=== PATIENT | female | born 1950 | race Caucasian/White ===

== ENCOUNTER 2017-01-12 11:41 | Emergency (ER) | payer OTHER ==
[2017-01-12] MEDS ORDERED: PENICILLIN VK 250 MG TABLET PO STA (12:22)
[2017-01-12] MEDS ORDERED: PENICILLIN VK 250 MG TABLET PO ONE (12:30)
[2017-01-12] MEDS ORDERED: BACITRACIN OINT TOP STA (12:41)
== END 2017-01-12 12:50 | disposition home or self-care (01) ==
DX: S01.511A Laceration without foreign body of lip, initial encounter (principal); S00.81XA Abrasion of other part of head, initial encounter; W01.0XXA Fall on same level from slipping, tripping and stumbling without subsequent striking against object, initial encounter; Y93.02 Activity, running
CPT/HCPCS: 99283; A9270

== ENCOUNTER 2019-06-02 04:53 | Emergency (ER) | payer OTHER ==
--- NOTE | 2019-06-02 05:00 | ED Physician Documentation ---
History of Present Illness - Stated complaint Stated Complaint: STUNG BY BEE ON FINGER - History obtained from History obtained from: Patient - History of Present Illness Timing: How many days ago (2) Pain level now: 0 - Additonal information Additional information: stung by a bee to her right fourth (ring) finger. 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 Patient is left- hand dominant Review of Systems Constitutional: denies: Fever Skin: reports: Bite / sting Musculoskeletal: reports: Extremity pain PD PAST MEDICAL HISTORY - Past Medical History Past Medical History: No - Past Surgical History Past Surgical History: Yes /ENFORCEMENT MANAGER: Oophrectomy HEENT: Other - Present Medications Home Medications: Ambulatory Orders Medication Instructions Recorded Confirmed Glucosamine HCl/Chondroitin Rosario PO DAILY 06/02/19 [Glucosamine-Chondroitin Cap] - Allergies Allergies/Adverse Reactions: Allergies Allergy/AdvReac Type Severity Reaction Status Date / Time No Known Drug Allergies Allergy Verified 01/12/17 11:55 - Social History Does the pt smoke?: No Smoking Status: Never smoker Does the pt drink ETOH?: No Does the pt have substance abuse?: No - Immunizations Immunizations are current?: Yes - POLST Patient has POLST: No PD ED PE NORMAL - Vitals Vital signs reviewed: Yes - General General: Alert and oriented X 3, No acute distress, Well developed/nourished - Neuro Neuro: No motor deficit, No sensory deficit PD ED PE EXPANDED - Extremities Extremities: Other (right fourth finger (ring finger) is erythematous and edematous distal to ring at base of the finger (immediately distal to MCP joint). no FB (stinger) seen) Results - Vitals Vitals: Vital Signs - 24 hr 06/02/19 06/02/19 04:57 05:00 Temperature 36.4 C L Heart Rate 73 Respiratory 17 Rate Blood Pressure 151/103 H 150/84 H O2 Saturation 98 Oxygen O2 Source Room air PD MEDICAL DECISION MAKING - ED course Complexity details: considered differential, d/w patient ED course: ring removed with ring-cutter without difficulty and there was immediate relief of discomfort. HPI and exam is c/w edema from local reaction exacerbated by tourniquet effect of the gold/silver ring. Departure - Departure Disposition: 01 Home, Self Care Clinical Impression: Bee sting Condition: Good Instructions: ED Bite Sting Insect Local Allergic React Discharge Date/Time: 06/02/19 05:51
[2019-06-02 05:42] VITALS: BP 150/84
== END 2019-06-02 05:51 | disposition home or self-care (01) ==
LOC: ED 04:53
DX: T63.441A Toxic effect of venom of bees, accidental (unintentional), initial encounter (principal); R60.0 Localized edema; M79.644 Pain in right finger(s)
CPT/HCPCS: 99281; 99282

== ENCOUNTER 2020-09-14 21:30 | Outpatient (CLI) | payer OTHER | END 2020-09-14 21:31 | disposition critical access hospital (66) | LOC: EMS 21:30 | PROVIDERS: ATTEND Surgery | DX: R51.9 Headache, unspecified (principal); H53.8 Other visual disturbances; G31.84 Mild cognitive impairment of uncertain or unknown etiology | CPT/HCPCS: A0425; A0427 ==

== ENCOUNTER 2020-09-14 22:10 | Emergency (ER) | payer OTHER ==
--- NOTE | 2020-09-14 22:12 | ED Physician Documentation ---
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 HEENT: Other - Present Medications Home Medications: Ambulatory Orders Medication Instructions Recorded Confirmed Glucosamine HCl/Chondroitin Rosario PO DAILY 06/02/19 [Glucosamine-Chondroitin Cap] - Allergies Allergies/Adverse Reactions: Allergies Allergy/AdvReac Type Severity Reaction Status Date / Time No Known Drug Allergies Allergy Verified 01/12/17 11:55 - Social History Does the pt smoke?: No Smoking Status: Never smoker Does the pt drink ETOH?: No Does the pt have substance abuse?: No - Immunizations Immunizations are current?: Yes - POLST Patient has POLST: No Results - Vitals Vitals: Oxygen O2 Source Room air
--- NOTE | 2020-09-14 22:12 | ED Physician Documentation ---
PD HPI FOCAL NEURO - Stated complaint Stated Complaint: STROKE SX - History obtained from History obtained from: Patient - History of Present Illness Timing - onset: Enter time (20:20), Today Timing - details: Abrupt onset, Still present (improving) Severity of deficit: Moderate Weakness: No: Face, Arm, Hand, Leg, Foot, Right, Left, Other Numbness: No: Face, Arm, Hand, Leg, Foot, Right, Left, Other Associated symptoms: Headache. No: Nausea / vomiting, Seizure, Syncope, Fall, Head injury, Chest pain, Neck pain, Back pain, Fever Contributing factors: negative: Anticoagulated, Vascular dz, Atrial fibrillation, Prosthetic heart valve Baseline status: positive: A&OX3, ambulatory, indep Similar symptoms before: Diagnosis (similar episode several years ago, diagnosed as TIA) Recently seen: Not recently seen - Additional information Additional information: c/o sudden onset posterior headache associated with visual changes and memory loss. symptom onset while awake and at rest at approximately 8:20 PM. she has difficulty describing the visual changes; she denies blurred vision, double vision, field cuts/deficits; she describes not being able to recognize or understand objects and words despite being able to see them. she also describes memory loss with examples of forgetting the names of her dogs and EMS reporting that patient would forget their names (names of EMS crew) every 30 seconds no matter how often they reminded her when she would ask. patient has improved dramatically en route to ED; still has residual SCHWARZ, and tells me she is 95 percent of baseline memory (she gives example of now recalling her dogs names but doesnt know how to spell them) Review of Systems Constitutional: reports: Reviewed and negative Eyes: reports: Other (difficulty processing visual cues as noted in HPI). denies: Loss of vision, Decreased vision Ears: reports: Reviewed and negative Cardiac: reports: Reviewed and negative Respiratory: reports: Reviewed and negative GI: reports: Reviewed and negative : reports: Reviewed and negative Musculoskeletal: reports: Reviewed and negative Neurologic: reports: Altered mental status (memory loss as per HPI), Headache. denies: Generalized weakness, Focal weakness, Numbness, Difficulty speaking, Head injury PD PAST MEDICAL HISTORY - Past Medical History Past Medical History: No - Past Surgical History Past Surgical History: Yes /TOOL BUILDER: Oophrectomy HEENT: Other - Present Medications Home Medications: Ambulatory Orders Medication Instructions Recorded Confirmed No Known Home Medications 09/14/20 09/14/20 - Allergies Allergies/Adverse Reactions: Allergies Allergy/AdvReac Type Severity Reaction Status Date / Time No Known Drug Allergies Allergy Verified 09/14/20 22:39 - Living Situation Living Arrangement: reports: At home - Social History Does the pt smoke?: No Smoking Status: Never smoker Does the pt drink ETOH?: No Does the pt have substance abuse?: No - Immunizations Immunizations are current?: Yes - POLST Patient has POLST: No PD ED PE NORMAL - Vitals Vital signs reviewed: Yes - General General: Alert and oriented X 3, No acute distress, Well developed/nourished - HEENT HEENT: PERRL, Other (dysconjugate gaze, which is not new per patient) - Neck Neck: Supple, no meningeal sign - Cardiac Cardiac: RRR, No murmur, No gallop, No rub - Respiratory Respiratory: No respiratory distress, Clear bilaterally - Abdomen Abdomen: Soft, Non tender - Derm Derm: Normal color, Warm and dry - Extremities Extremities: No edema - Neuro Neuro: Alert and oriented X 3, administrative clerk 2-12 intact, No motor deficit, No sensory deficit, Normal speech Eye Opening: Spontaneous Motor: Obeys Commands Verbal: Oriented GCS Score: 15 - Psych Psych: Normal mood, Normal affect NIHSS - Level of Consciousness Level of consciousness: (0) Alert, Keenly responsive LOC Questions: (0) Answers both Q's correct LOC Commands: (0) Performs both correctly - Gaze Best Gaze: (0) Normal - Visual Visual: (0) No loss - Facial Palsy Facial Palsy: (0) Normal, symmetrical movement - Motor Arms (both separate) Motor Arm (right): (0) No drift Motor Arm (left): (0) No drift - Motor Legs (both separate) Motor Leg (right): (0) No drift Motor Leg (left): (0) No drift - Limb Ataxia Limb Ataxia: (0) Absent - Sensory Sensory: (0) Normal - Best Language Best Language: (0) No aphasia - Dysarthria Dysarthria: (0) Normal - Extinction and Inattention (formally neg Extinction and inattention: (0) No abnormality - Total Score/Results Total Score/Result: 0 Results - Vitals Vitals: Oxygen O2 Source Room air - EKG (time done) No standard instances Rate: Rate (enter#) (93) Rhythm: NSR, LAE, JAVI [place]: LAD Intervals: Normal AL QRS: LVH Ischemia: Normal ST segments, Q waves (V1,V2) - Labs Labs: Laboratory Tests 09/14/20 09/14/20 09/14/20 22:27 22:27 22:27 WBC 7.1 RBC 4.44 Hgb 12.8 Hct 39.4 MCV 88.7 MCH 28.8 MCHC 32.5 RDW 11.9 L Plt Count 268 MPV 9.8 Neut # (Auto) 4.9 Lymph # (Auto) 1.3 L Stanly # (Auto) 0.6 Eos # (Auto) 0.2 Baso # (Auto) 0.1 Absolute Nucleated RBC 0.00 Nucleated RBC % 0.0 PT INR APTT Sodium 136 Potassium 3.7 Chloride 102 Carbon Dioxide 24 Anion Gap 10.0 BUN 20 Creatinine 0.7 Estimated GFR (MDRD) 83 L Glucose 124 H Calcium 8.5 Total Bilirubin 0.5 AST 19 ALT 14 Alkaline Phosphatase 55 Total Protein 6.5 L Albumin 4.1 Globulin 2.4 Albumin/Globulin Ratio 1.7 Lipase 60 H TSH 4.75 Urine Color Urine Clarity Urine pH Ur Specific Grandin Urine Protein Urine Glucose (UA) Urine Ketones Urine Occult Blood Urine Nitrite Urine Bilirubin Urine Urobilinogen Ur Leukocyte Esterase Ur Microscopic Review Urine Culture Comments 09/14/20 09/14/20 22:50 23:10 WBC RBC Hgb Hct MCV MCH MCHC RDW Plt Count MPV Neut # (Auto) Lymph # (Auto) Stanly # (Auto) Eos # (Auto) Baso # (Auto) Absolute Nucleated RBC Nucleated RBC % PT 11.7 INR 1.0 APTT 27.6 Sodium Potassium Chloride Carbon Dioxide Anion Gap BUN Creatinine Estimated GFR (MDRD) Glucose Calcium Total Bilirubin AST ALT Alkaline Phosphatase Total Protein Albumin Globulin Albumin/Globulin Ratio Lipase TSH Urine Color YELLOW Urine Clarity CLEAR Urine pH 7.5 Ur Specific Grandin 1.010 Urine Protein NEGATIVE Urine Glucose (UA) NEGATIVE Urine Ketones NEGATIVE Urine Occult Blood NEGATIVE Urine Nitrite NEGATIVE Urine Bilirubin NEGATIVE Urine Urobilinogen 0.2 (NORMAL) Ur Leukocyte Esterase NEGATIVE Ur Microscopic Review NOT INDICATED Urine Culture Comments NOT INDICATED - Rads (name of study) CTA head Radiology: Prelim report reviewed, See rad report CTA neck Radiology: Prelim report reviewed, See rad report PD MEDICAL DECISION MAKING - ED course Complexity details: reviewed results, re-evaluated patient, considered differential, d/w patient ED course: symptoms markedly improved by the time of my initial H+P. test results including blood tests, CTA head and neck, and EKG are all nondiagnostic and reassuring. D/W Dr. Kelly, buttonhole machine operator for [facility]; patient is not appropriate for tPA (0 NIHSS, and initial and residual symptoms do not particularly suggest cerebral ischemic process such as CVA or TIA). although possibly coincident, patients symptoms seemed to correlate with her blood pressure: her symptoms were still present during EMS assessment when her SBP was 200s-210s and symptoms improved en route as her blood pressure improved, and continued to do so in ED as her blood pressures continued to improve. during NIHSS assessment, patient was naming pictured objects and reading words/sentences easily and accurately, but she notes I would never have been able to do this before (when her symptoms were most pronounced). Dr. Kelly suspects symptoms were result of her high blood pressures and doubts TIA; accordingly, he recommends admission for BP control and possibly MRI/MRA in the morning although he opines the imaging wouldnt need to be performed as inpatient if her symptoms completely resolve. I discussed this with the patient. she says her symptoms have resolved except for mild residual posterior headache (she again uses example of the persistent lack of recall as to how to spell her dogs name; she can do so and give backstory as to how the dog got its name). her blood pressures are now consistently high-normal/borderline to mild hypertension. she very strongly prefers d/c home. she says she will seek f/u with PMD and will call 911 if any symptoms recur or headache worsens. Departure - Departure Disposition: 01 Home, Self Care Clinical Impression: Hypertension Qualifiers: Hypertension type: unspecified Qualified Code(s): I10 - Essential (primary) hypertension Condition: Good Instructions: ED Cephalgia Unspecified, ED Hypertension Poss Comments: Follow up with your primary care provider; call to arrange for next available appointment. The cause of you symptoms tonight is not clear. Your test results are reassuring and do not reveal any emergent nor diagnostic findings (a cause of your symptoms is not found nor suspected based on the test results). It is important that you follow up with your primary care provider even if you feel well. Discharge Date/Time: 09/15/20 01:33
[2020-09-14 22:45] LABS: BASOPHILS # (AUTO) 0.1 10^3/uL (0.0-0.1); BASOPHILS % (AUTO) 0.8 %; EOSINOPHILS # (AUTO) 0.2 10^3/uL (0.0-0.7); EOSINOPHILS % (AUTO) 3.4 %; HGB - HEMOGLOBIN 12.8 g/dL (12.0-16.0); LYMPHOCYTES # (AUTO) 1.3 10^3/uL (1.5-3.5); LYMPHOCYTES % (AUTO) 18.2 %; MEAN CORPUSCULAR HEMOGLOBIN 28.8 pg (27.0-31.0); MEAN CORPUSCULAR HGB CONC 32.5 g/dL (32.0-36.0); MEAN CORPUSCULAR VOLUME 88.7 fL (81.0-99.0); MEAN PLATELET VOLUME 9.8 fL (7.9-10.8); MONOCYTES # (AUTO) 0.6 10^3/uL (0.0-1.0); MONOCYTES % (AUTO) 8.1 %; NEUTROPHILS # (AUTO) 4.9 10^3/uL (1.5-6.6); NEUTROPHILS % (AUTO) 69.2 %; PLT - PLATELET COUNT 268 10^3/uL (130-450); RED BLOOD COUNT 4.44 10^6/uL (4.20-5.40); RED CELL DISTRIBUTION WIDTH 11.9 % (12.0-15.0); WHITE BLOOD COUNT 7.1 x10^3/uL (4.8-10.8)
[2020-09-14 22:58] LABS: ALBUMIN 4.1 g/dL (3.2-5.5); ALBUMIN/GLOBULIN RATIO 1.7 (1.0-2.2); BILIRUBIN,TOTAL 0.5 mg/dL (0.2-1.0); CALCIUM 8.5 mg/dL (8.5-10.3); CREATININE 0.7 mg/dL (0.4-1.0); TOTAL PROTEIN 6.5 g/dL (6.7-8.2)
[2020-09-14 23:07] LABS: BILIRUBIN,URINE NEGATIVE (NEGATIVE); GLUCOSE, URINE (UA) NEGATIVE (NEGATIVE); KETONES,URINE (UA) NEGATIVE (NEGATIVE); LEUKOCYTE ESTERASE, URINE NEGATIVE (NEGATIVE); NITRITE,URINE NEGATIVE (NEGATIVE); OCCULT BLOOD,URINE NEGATIVE (NEGATIVE); PH,URINE 7.5 PH (5.0-7.5); PROTEIN,URINE NEGATIVE (NEGATIVE); UROBILINOGEN,URINE 0.2 (NORMAL) E.U./dL (NORMAL)
[2020-09-14 23:13] LABS: CLARITY,URINE CLEAR (CLEAR)
[2020-09-14 23:18] LABS: PT - PROTHROMBIN TIME 11.7 secs (9.9-12.6)
[2020-09-14 23:25] LABS: PARTIAL THROMBOPLASTIN TIME 27.6 secs (24.9-33.3)
[2020-09-14] MEDS ORDERED: IOVERSOL 320 100 ML VIAL IVP ONE ×2 (23:29→23:38)
[2020-09-15 01:32] VITALS: BP 163/88
--- NOTE | 2020-09-15 08:24 | XRAY Report ---
PROCEDURE: Chest 1 View X-Ray INDICATIONS: chest pain TECHNIQUE: One view of the chest was acquired. COMPARISON: None FINDINGS: Surgical changes and devices: None. Lungs and pleura: No pleural effusions or pneumothorax. Lungs are clear. Mediastinum: Mediastinal contours appear normal. Heart size is normal. Bones and chest wall: No suspicious bony lesions. Overlying soft tissues appear unremarkable. IMPRESSION: Relatively large lung volumes, no acute disease. Reviewed by: Scotty Gibbs MD on 09/15/2020 8:22 AM [facility] Approved by: Scotty Gibbs MD on 09/15/2020 8:22 AM [facility] Station ID: [id number]
--- NOTE | 2020-09-15 09:13 | CT Report ---
PROCEDURE: ANGIO HEAD W/WO INDICATIONS: headache, visual changes CONTRAST: IV CONTRAST: Optiray 320 ml: 80 PO CONTRAST: *NO PO CONTRAST TECHNIQUE: Precontrast 4.5 mm thick angled axial sections acquired from the foramen magnum to the vertex. Afte r the administration of intravenous contrast, 1 mm thick sections acquired through the [place] of Will is. Postcontrast 4.5 mm thick sections then re-acquired from the foramen magnum to the vertex. 3-di mensional rsmuciq-tkedhkrkg-zfplwefbvs (MIP) and/or volume rendering reformats were acquired of the c entral intracranial vasculature. For radiation dose reduction, the following was used: automated ex posure control, adjustment of mA and/or kV according to patient size. COMPARISON: No prior head CT is available for review. FINDINGS: Image quality: Excellent. Anterior circulation: Intracranial internal carotid arteries are normal in size and flow. The flow within the paired anterior cerebral arteries is normal and symmetric. The flow within the middle cer ebral arteries is normal and symmetric. The anterior communicating artery is seen. No aneurysms are seen. Posterior circulation: Visualized portions of the vertebral arteries demonstrate normal caliber, and join to form a normal appearing basilar artery. Flow within the posterior cerebral arteries is norm al and symmetric. No aneurysms are seen. CSF spaces: Ventricles are normal in size and shape. Basal cisterns are patent. No extra-axial flu id collections. Brain: No midline shift. No intracranial bleeds or masses. Garrett-white matter interface appears int act. Skull and face: Calvarium and facial bones appear intact, without suspicious lesions. Sinuses: Visualized sinuses and mastoids are clear except at the posterior left ethmoid air cell are a where a rounded masslike structure can be seen, contiguous with the anterior border of the sphenoid sinus, measuring 1.4 cm craniocaudad, 1.7 cm AP and 1.5 cm transverse. IMPRESSION: No aneurysm or arterial occlusion is found. Mild to moderate atherosclerotic calcification at the [facility] base arterial vasculature is noted. Note is made of a potential soft tissue mass at the posterior left ethmoid air cell region contiguous with the anterior border of the sphenoid sinus, measuring up to 1.4 x 1.7 x 1.5 cm. This is consider ed an incidental finding and follow-up ENT consultation is recommended based on its appearance unless this has been previously documented and is stable over time from prior studies elsewhere. These find ings were discussed with the emergency room physician caring for the patient at time of initial inter pretation. A follow-up call to the emergency room physician on duty at time of this dictation also wa s performed, and discussed in detail. ENT follow-up is anticipated as a result. Reviewed by: Scotty Gibbs MD on 09/15/2020 9:11 AM PST Approved by: Scotty Gibbs MD on 09/15/2020 9:11 AM PST Station ID: [id number]
--- NOTE | 2020-09-15 09:18 | ED Physician Documentation ---
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 ENT follow up recommended, took phone call from radiology. Called and left message with patient.
--- NOTE | 2020-09-15 09:20 | CT Report ---
PROCEDURE: ANGIO NECK W INDICATIONS: Headache, visual changes CONTRAST: IV CONTRAST: Optiray 320 ml: 80 PO CONTRAST: *NO PO CONTRAST TECHNIQUE: After the administration of intravenous contrast, 1.5 mm axial sections acquired from the aortic arch to the Teller of Cheng. Coronal 3-D maximum intensity projection (MIP) and/or volume rendering ref ormats were then performed. For radiation dose reduction, the following was used: automated exposur e control, adjustment of mA and/or kV according to patient size. COMPARISON: Intracranial CT angiogram same day reviewed. FINDINGS: Image quality: Excellent. Carotid system: The great vessels demonstrate a conventional anatomy as they arise from the aortic a rch. The origins of the common carotid arteries appear patent. The common carotid arteries demonstr ate normal calibers and courses. The bifurcation regions appear normal bilaterally. The internal ca rotid arteries demonstrate normal caliber and course. Mild atherosclerotic calcification at the bifu rcation. Posterior circulation: The origins of the vertebral arteries appear patent. The more superior porti ons of the vertebral arteries demonstrate normal course and caliber. They join to form a normal appe aring basilar artery. Soft tissues: Visualized neck soft tissues demonstrate no suspicious abnormalities. The thyroid gla nd is normal in size. Note is again made of a soft tissue masslike lesion at the posterior left ethmo id air cells which is mildly lobulated, measures approximately 95 Hounsfield units in radiodensity, a nd is measured on this study at approximately 1.5 x 1.5 cm in axial dimension and 1.6 cm craniocaudad . Bones: No suspicious bony lesions. Visualized cervical spine appears normally aligned. IMPRESSION: No significant stenosis found at the brachiocephalic arteries bilaterally. Mild atherosclerotic calci fication at the carotid bifurcations bilaterally. Note is made of a soft tissue masslike appearance at the posterior left ethmoid air cells, also seen on intracranial CT angiogram performed today. This has higher density than temporal musculature, may represent a hyperenhancing mass (but precontrast imaging is not available) and could represent a coin cidentally discovered benign or malignant soft tissue neoplasm. This information was noted at time of initial interpretation, and I personally also have called to and discussed with the emergency room lesia watts currently on duty regarding concern for neoplasm as cause of this appearance. ENT consultati on has been discussed and recommended. The estimate of stenosis included in the report of the imaging study was calculated using the NASCET method Reviewed by: Scotty Gibbs MD on 09/15/2020 9:18 AM PST Approved by: Scotty Gibbs MD on 09/15/2020 9:18 AM PST Station ID: [id number]
== END 2020-09-15 01:33 | disposition home or self-care (01) ==
LOC: ED 22:10
DX: I10 Essential (primary) hypertension (principal); R51.9 Headache, unspecified; R41.3 Other amnesia; R41.82 Altered mental status, unspecified
CPT/HCPCS: 36415; 70496; 70498; 71045; 81003; 83690; 85610; 85730; 93005; 99284; Q9967; 80053; 81001; 84443; 85025; 87086